=== PATIENT | female | born 1985 ===

== ENCOUNTER 2016-09-14 17:47 | Emergency (ER) | payer BC ==
[~2016-09-14] VITALS: Ht 152.4 cm; Wt 59.0 kg
[~2016-09-14 17:47] MED LIST: GLUCTAB PO
[2016-09-14 17:50] VITALS: BP 117/79; PULSE 88; RESP 14; TEMP 98.4; O2SAT 98
[2016-09-14] MEDS ORDERED: BECL0.07 INH (18:02)
[2016-09-14] MEDS ORDERED: METF850T PO (18:02)
[2016-09-14] MEDS ORDERED: LEVO100T5 PO (18:02)
[2016-09-14] MEDS ORDERED: SPIR100T PO (18:02)
[2016-09-14] MEDS ORDERED: VENTAER INH (18:02)
[2016-09-14] MEDS ORDERED: KETOROLAC TROMETHAMINE 60 MG/2 ML (IM) VIAL IM ONE (18:30)
[2016-09-14] MEDS ORDERED: KETOROLAC TROMETHAMINE 30 MG/ML (IVP) VIAL IV PUSH ONE (18:30)
--- NOTE | 2016-09-14 18:30 | PD ---
HPI Chief Complaint: Injury Time Seen by Provider: 18:04 Travel History International Travel<30 days: No Contact w/Intl Traveler<30days: No Traveled to known affect area: No History of Present Illness HPI 30-year-old female complains of left dorsal foot pain. She ran about 4.5 miles yesterday night. She runs routinely. She states it feels as though there is cotton in the dorsal foot. It is extremely painful to walk. A burning sensation is felt on the plantar aspect of the foot. The patient woke up with the pain. PFSH Past Medical History Diabetes: Yes Patient Takes Glucophage: Yes ?: Not LMP: 09/02/16 : 2 Para: 1 Miscarriage: 1 Past Surgical History Gynecologic Surgery: Yes (LEFT OVARY AND FALLOPIAN TUBE REMOVED) Social History Alcohol Use: No Tobacco Use: No Substance Use: No Allergies-Medications (Allergen,Severity, Reaction): Coded Allergies: Morphine (Verified Allergy, Severe, Anaphylaxis, 09/14/16) Reported Meds & Prescriptions Reported Meds & Active Scripts Active Ultram (Tramadol HCl) 50 Mg Tab 50 Mg PO Q6H PRN Mobic (Meloxicam) 15 Mg Tab 15 Mg PO DAILY Reported Ventolin Hfa 18 GM Inh (Albuterol Sulfate) 90 Mcg/Act Aer 1 Puff INH Q4H PRN Metformin (Metformin HCl) 850 Mg Tab 850 Mg PO BIDPC With meals Levothyroxine (Levothyroxine Sodium) 100 Mcg Tab 100 Mcg PO DAILY Spironolactone 100 Mg Tab 100 Mg PO DAILY Qvar Inh (Beclomethasone Dipropionate) 40 Mcg/Act Aero 1 Puff INH BID Review of Systems Except as stated in HPI: all other systems reviewed are Neg Physical Exam Narrative GENERAL: Well-nourished well-developed 30-year-old female distress SKIN: Warm and dry. HEAD: Normocephalic. EYES: No scleral icterus. No injection or drainage. NECK: Supple, trachea midline. No JVD or lymphadenopathy. CARDIOVASCULAR: Regular rate and rhythm without murmurs, gallops, or rubs. RESPIRATORY: Breath sounds equal bilaterally. No accessory muscle use. GASTROINTESTINAL: Abdomen soft, non-tender, nondistended. MUSCULOSKELETAL: No cyanosis, or edema. Minimal ecchymosis and tenderness about the dorsal left foot along the ankle mortise and just somewhat laterally. No gross deformity. 2+ dorsalis pedis bilaterally. BACK: Nontender without obvious deformity. No CVA tenderness. Data Data Last Documented VS Vital Signs Date Time Temp Pulse Resp B/P Pulse Ox O2 Delivery O2 Flow Rate FiO2 09/14/16 17:50 98.4 88 14 117/79 98 Vital signs reviewed Orders Ankle, Complete ([id number]) (09/14/16 18:25) Foot, Complete ([id number]) (09/14/16 18:25) Ice/Cold Pack (09/14/16 18:25) Ketorolac Inj (Toradol Inj) (09/14/16 18:30) Ketorolac Inj (Toradol Inj) (09/14/16 18:30) Splint Or Brace Apply/Monitor (09/14/16 19:45) Brace Ankle Stirrup (09/14/16 ) MDM Medical Decision Making Medical Screen Exam Complete: Yes Emergency Medical Condition: Yes Medical Record Reviewed: Yes Differential Diagnosis Ankle fracture, foot fracture, contusion, sprain Narrative Course imaging pending, oncoming provider will follow up imaging and disposition appropriately. Referrals: Delmis Kinsey DPM 2 days Additional Instructions: You have a choice when it comes to health care, and we are glad that you chose [facility]. Hopefully, we have met your expectations on today's visit. You are welcome to return to [facility] at any time, as we are committed to meeting the health care needs of our community. Med/Other Pt SpecificInfo: No Change to Meds Scripts Tramadol (Ultram)50 Mg Tab50 Mg PO Q6H PRN (PAIN) #20 TAB Ref 0 Prov:Efraín Corley MD 09/14/16 Meloxicam (Mobic)15 Mg Tab15 Mg PO DAILY #20 TAB Prov:Efraín Corley MD 09/14/16 Disposition: 01 DISCHARGE HOME Condition: Stable Rajesh Boone MD Sep 14, 2016 18:30
--- NOTE | 2016-09-14 19:45 | RADHPO ---
EXAM DATE/TIME: 09/14/2016 18:35 [facility] COMPARISON: No previous studies available for comparison. INDICATIONS : Woke up with left ankle pain today MEDICAL HISTORY : None. SURGICAL HISTORY : None. ENCOUNTER: Initial ACUITY: 1 day PAIN SCORE: 10/10 LOCATION: Left ankle FINDINGS: Three view exam was performed of the left ankle. The bony structures are in normal alignment. No ev idence of fracture, dislocation, or soft tissue swelling. The ankle mortise is intact. No radiopaqu e foreign bodies are seen. Bony mineralization is normal. CONCLUSION: Negative exam. Devin Hill MD on September 14, 2016 at 19:43 Board Certified Radiologist. This report was verified electronically.
--- NOTE | 2016-09-14 19:46 | RADHPO ---
EXAM DATE/TIME: 09/14/2016 18:40 [facility] COMPARISON: No previous studies available for comparison. INDICATIONS : Woke up with left foot pain today MEDICAL HISTORY : None. SURGICAL HISTORY : None. ENCOUNTER: Initial ACUITY: 1 day PAIN SCORE: 10/10 LOCATION: Left foot FINDINGS: Three view examination of the left foot demonstrates no soft tissue swelling, dislocation, or fractur e. The tarsal bones appear intact. The interphalangeal and metatarsophalangeal joints are intact. The calcaneus is intact. Bony mineralization is normal. CONCLUSION: Negative exam. Devin Hill MD on September 14, 2016 at 19:44 Board Certified Radiologist. This report was verified electronically.
[2016-09-14] MEDS ORDERED: ULTR50TA5 PO (19:48)
[2016-09-14] MEDS ORDERED: MOBI15TA PO (19:48)
--- NOTE | 2016-09-14 19:48 | PD ---
Physical Exam Narrative Patient was seen by ED physician and signed out to me. Data Data Last Documented VS Vital Signs Date Time Temp Pulse Resp B/P Pulse Ox O2 Delivery O2 Flow Rate FiO2 09/14/16 17:50 98.4 88 14 117/79 98 Orders Ankle, Complete ([id number]) (09/14/16 18:25) Foot, Complete ([id number]) (09/14/16 18:25) Ice/Cold Pack (09/14/16 18:25) Ketorolac Inj (Toradol Inj) (09/14/16 18:30) Ketorolac Inj (Toradol Inj) (09/14/16 18:30) Splint Or Brace Apply/Monitor (09/14/16 19:45) MDM Supervised Visit with ASTRID: No Narrative Course Stirrup ankle brace applied left ankle. Diagnosis Primary Impression: Left ankle sprain Qualified Code: S93.402A - Sprain of left ankle, unspecified ligament, initial encounter Referrals: Delmis Kinsey DPM 2 days Additional Instruction: You have a choice when it comes to health care, and we are glad that you chose [facility]. Hopefully, we have met your expectations on today's visit. You are welcome to return to [facility] at any time, as we are committed to meeting the health care needs of our community. Scripts Tramadol (Ultram)50 Mg Tab50 Mg PO Q6H PRN (PAIN) #20 TAB Ref 0 Prov:Efraín Corley MD 09/14/16 Meloxicam (Mobic)15 Mg Tab15 Mg PO DAILY #20 TAB Prov:Efraín Corley MD 09/14/16 Disposition: 01 DISCHARGE HOME Condition: Stable Efraín Corley MD Sep 14, 2016 19:48
[2016-09-25] MEDS ORDERED: BACT800T5 PO (19:44)
[2016-09-25] MEDS ORDERED: METR250 PO (19:44)
== END 2016-09-14 19:56 | disposition home or self-care (01) ==
LOC: PHEFT 17:47
DX: S93.402A Sprain of unspecified ligament of left ankle, initial encounter (principal); E11.9 Type 2 diabetes mellitus without complications; X58.XXXA Exposure to other specified factors, initial encounter; Y93.9 Activity, unspecified; Y92.9 Unspecified place or not applicable; Y99.8 Other external cause status
CPT/HCPCS: 73610; 73630; 96372; 99284; J1885; L1906